=== PATIENT | female | born 1985 | race Caucasian/White ===

== ENCOUNTER 2016-09-26 01:28 | Inpatient (IN) | payer OTHER ==
[~2016-09-26] VITALS: Ht 154.9 cm; Wt 90.7 kg
[2016-09-26] MEDS ORDERED: Hemorrhage Kit, Post Partum XX ONE (23:25)
[2016-09-26] MEDS ORDERED: fentaNYL-PF 50 mCg/mL 2 mL Inj IVPUSH PRN (23:25)
[2016-09-26] MEDS ORDERED: Methylergonovine 0.2 mg/mL Inj IM PRN (23:25)
[2016-09-26] MEDS ORDERED: Sodium Chloride LOK Flush 10 mL Syringe IVFLUSH PRN (23:25)
[2016-09-26] MEDS ORDERED: Carboprost 250 mCg/mL Inj IM PRN (23:25)
[2016-09-26] MEDS ORDERED: Oxytocin 30 Units/500 mL LR 30 UNITS in IV Premix 1 EACH IV PRN (23:25)
[2016-09-26] MEDS ORDERED: Oxytocin 10 Unit/mL Inj IM PRN (23:25)
[2016-09-26 23:34] LABS: Mean Corpuscular Hemoglobin 30.3 pg (27.0-35.0); Mean Corpuscular Volume 89.8 fL (81-100)
[2016-09-26] MEDS: Lactated Ringer's 1,000 ML IV PRN (23:50)
[2016-09-27] MEDS ORDERED: Lactated Ringer's 1,000 ML IV SCH ×3 (02:58→18:21)
[2016-09-27] MEDS ORDERED: Lactated Ringer's 500 ML IV ONE ×2 (02:58→16:05)
[2016-09-27] MEDS ORDERED: fentaNYL 2 mCg/mL-Bupiv 0.125% 100 ML EPIDURAL SCH (03:00)
[2016-09-27] MEDS ORDERED: EPHEDrine Sulfate 50 mg/mL Inj IVPUSH PRN (03:00)
[2016-09-27] MEDS ORDERED: Atropine 1 mg/10 mL (Code) Syringe IVPUSH PRN (03:00)
--- NOTE | 2016-09-27 03:31 | PCM.HPANE ---
Patient Data Date of Service: Sep 27, 2016 (0300) Surgeon Admitting Provider:Smooth Bernal MD Attending Provider:Smooth Bernal MD Primary Care Physician:Smooth Bernal MD Other Provider:Eric Ryan Anesthesia Reason for Visit Induction INDUCTION Ht/WT & BMI Height (Feet): 5 Height (Inches): 1 Body Mass Index Allergies Coded Allergies: No Known Allergies (Unverified , 09/26/16) Past Anesthesia History Anesthesia History: Denies:: Anesthesia Reactions Diabetes History Hx Diabetes?: No MRSA MRSA: No History History of ENT Problems?: No HEENT History: Denies:: Abnormal Airway Denture Type: None Teeth Condition: Within Normal Limits Hx of Heart Problems?: No Cardiovascular History: Denies:: Cardiac Surgery Hx of Respiratory Problem?: No Respiratory History: Denies:: Pneumonia Hx Neurologic Problems?: No Neurological History: Denies:: Headaches Peripheral Neuropathy Hx of GI Problems?: No Hx of Problems?: No Female Hx: Positive for:: Currently Hx Musculoskeletal Problems?: No Hx Surgeries?: No Stop/Bang Risk Assessment Category Category 1A: Patient has history of documented sleep apnea, and HAS NOT received any narcotic, sedative or anesthesia administration during this stay. Category 1B: Patient has history of documented sleep apnea, and HAS received any narcotic , sedative or anesthesia administration during this stay Category 2: Patient has SUSPECTED Obstructive Sleep Apnea, and HAS received any narcotic , sedative or anesthesia administration during this stay. Category 3: Patient has SUSPECTED Obstructive Sleep Apnea and HAS NOT received narcotic, sedative or anesthesia administration during this stay. Category 4: Outpatient in Procedural Areas with known sleep apnea or who screen positive for High Risk via the STOP/BANG questionnaire. Exam Exam General Appearance: Alert, Oriented X3, Moderate Distress HEENT/AIRWAY: MP 2 Lungs: Clear to Auscultation Heart: Exam Unremarkable Meds/Labs/Diagnostics Labs Test 09/26/16 23:32 White Blood Count 13.1th/mm3 (3.8-10.1) Red Blood Count 3.63mil/mm3 (3.90-5.20) Hemoglobin 11.0g/dL (12.0-15.6) Hematocrit 32.6% (35.0-46.0) Mean Corpuscular Volume 89.8fL (81-100) Mean Corpuscular Hemoglobin 30.3pg (27.0-35.0) Mean Corpuscular Hemoglobin Concent 33.7% (32.0-37.0) Red Cell Distribution Width 13.5% (12.3-15.4) Platelet Count 203bil/L (150-400) Plan Impression Patient chart reviewed, patient interviewed and anesthestic plan with risks, benefits, and alternatives discussed, and informed consent obtained. NPO per Anesth. Guidelines: Yes ASA Physical Status: ASA2 Mod Systemic Disease Anesthetic Plan: Epidural Bene/Risks/Altern/Consents: Yes HP Complete Prior to Induction: Yes Leonides Escalante MD Sep 27, 2016 03:31
[2016-09-27] MEDS: Lactated Ringer's 1,000 ML IV PRN ×2 (05:34→05:54)
[2016-09-27 16:41] LABS: Mean Corpuscular Hemoglobin 30.5 pg (27.0-35.0); Mean Corpuscular Volume 90.5 fL (81-100)
[2016-09-27] MEDS ORDERED: Hemorrhage Kit, Post Partum XX ONE (18:25)
[2016-09-27] MEDS ORDERED: Measles-Mumps-Rubella Vaccine 0.5 mL Inj SUBQ ONE (18:25)
[2016-09-27] MEDS ORDERED: Benzocaine (Dermoplast) 20% 60 Gm Spray TOPICAL PRN (18:25)
[2016-09-27] MEDS ORDERED: Methylergonovine 0.2 mg/mL Inj IM PRN (18:25)
[2016-09-27] MEDS ORDERED: Oxytocin 10 Unit/mL Inj IM PRN (18:25)
[2016-09-27] MEDS ORDERED: LANOlin HPA 7 Gm Ointment TOPICAL PRN (18:25)
[2016-09-27] MEDS ORDERED: Carboprost 250 mCg/mL Inj IM PRN (18:25)
[2016-09-27] MEDS ORDERED: TdaP Vaccine 0.5 mL Inj IM ONE (18:25)
[2016-09-27] MEDS ORDERED: HYDROcodone-APAP 5-325 mg Tablet PO PRN (18:25)
[2016-09-27] MEDS ORDERED: Oxytocin 30 Units/500 mL LR 30 UNITS in IV Premix 1 EACH IV PRN (18:25)
[2016-09-27] MEDS ORDERED: Witch Hazel-Glycerin Pads TOPICAL PRN (18:25)
--- NOTE | 2016-09-28 00:05 | OP ---
[address] [address] OPERATIVE REPORT PATIENT: GABI MEYER : 1985 MR#: [id number] ADMIT: 09/26/2016 JOB ID: [id number] 09/27/2016 Smooht Bernal MD [facility] NOTE: Gabi Howard presented to [facility] last evening at 40-1/2 weeks of gestation with uterine contractions that were becoming more frequent and more intense. She was planned for admission last evening anyway in the setting of developing post-datism and macrosomia as estimated per ultrasonography and by exam. She initially was noted to be closed cervically initially, and Pitocin therapy was initiated to augment contractions that were coming relatively frequently. Pitocin therapy was carried on overnight and cervix did not change for some time, although contraction intensity did. Patient ultimately received intravenous fentanyl and then epidural as she was so uncomfortable, and she did receive relief. Note that some heart rate decelerations(variables/head compression type decelerations) occurred, sometimes improved with position changes and oxygen therapy and intravenous fluids, etc. There was typically good interval heart rate variability/reactivity. activity was audible and palpable throughout. At the time of my exam this morning, cervix was noted to be 7 to 8 cm in dilatation and head had dropped down to -1 station, very significant station change compared with floating. The patient was then observed with low-dose Pitocin and ultimately patient reached complete cervical dilation, and head continued to descend, and heart tracing continued to demonstrate reasonable variability/reactive characteristics. The patient then learned to push very well and steadily down the head to position, with significant caput formation and molding. Head then delivered, followed by delivery of the shoulders, body and extremities. Note that baby was active, crying and vigorous, and handed to mother for bonding and further nurse management. After a minute of delay, umbilical cord was clamped and cut and cord blood was obtained for routine studies. Placenta with membranes were then spontaneously expelled, intact. Note that there was approximately 300 cc of blood clots behind the placenta and membranes as noted on their delivery, ultimately estimating total blood loss at 400 cc. Uterus contracted well with massage plus intravenous Pitocin infusion, and bleeding was minimal at procedure's close. Betadine solution was used to cleanse the vulvovaginal region. There was second-degree midline laceration, bleeding, and closed with 2-0 chromic suture in deep running layer and then more superficial 3-0 chromic suture in a running and then subcuticular manner. Hemostasis was noted to be complete and there was no hematoma formation. The skin edges were well approximated and perineal support good. Rectal examination demonstrated no lacerations or stitches. Note also that one additional single interrupted stitch of 3-0 chromic suture was utilized to reapproximate the skin edges of very small right periurethral laceration. Procedures were thus complete. Mother and baby are doing well. Bleeding was minimal. Instrument, needle and sponge counts were all found to be correct. PERLITAD
--- NOTE | 2016-09-28 08:03 | PCM.DIOB ---
Obstetrical Disch Instruction Dates of Hospitalization Date of Hospital Admission Sep 26, 2016 at 22:48 Providers Admitting Physician: Smooth Bernal MD Primary Care Physician: Smooth Bernal MD Attending Physician: Smooth Bernal MD Discharge Diagnosis Problems: (1) Status: Acute ICD Code: Z33.1 Diet Discharge Diet: No restrictions Activity Discharge Activity-General: Pelvic Rest for 6 weeks Dressing and Incisional Care Hygiene: May shower, Perineal care, Sitz bath, Dermoplast spray, Witch Silva pads, Ice Follow Up Plan Follow-up appointment: Weeks (Followup in 6 weeks for checkup.) Call your provider for: Fever or Chills, Shortness of breath, Heavy vaginal bleeding, Red painful breasts Smooth Bernal MD Sep 28, 2016 08:03
[2016-09-28] MEDS ORDERED: FERR-83 PO (08:06)
[2016-09-28] MEDS ORDERED: DOCU-41 PO (08:06)
[2016-09-28] MEDS ORDERED: IBUP-1827 PO (08:06)
[2016-09-28 14:47] VITALS: BP 119/60; PULSE 96; RESP 20
--- NOTE | 2016-09-28 18:59 | DIS ---
[address] [address] DISCHARGE SUMMARY PATIENT: BLANCHE MEYER : 1985 MR#: [id number] ADMIT: 09/26/2016 JOB ID: [id number] DIS: DISCHARGE DIAGNOSIS: 1. A 40-5/7 weeks , delivered. 2. macrosomia. 3. Anemia. PROCEDURES PERFORMED DURING HOSPITALIZATION: 1. Labor augmentation. 2. Epidural anesthesia. 3. Vaginal delivery. 4. Perineal repair. HOSPITAL COURSE: The patient was admitted to [facility] the evening of September 26, 2016 with progressively increasing uterine contractions. This had been the evening slated for her admission anyway in the setting of developing postdatism and large for gestational age status. Pitocin augmentation was provided and ultimately true labor ensued, epidural was provided for pain management, and vaginal delivery occurred. See delivery note [facility]/delivery note. During the timeframe the patient did well in general. She did early on faint in the bathroom as accompanied by two nurses, without any trauma. She subsequently did well ambulating and voiding, with pain management, with reasonable bleeding, without leg pain or shortness of breath, and handling baby well. Note approximately 400 mL of blood loss estimated at delivery, much of this behind the placenta as it was gradually , and with hemoglobin drop from 11.0 to 9.0. Bleeding was not excessive at time of hospitalization. The patient requested discharge to home on the first day, i.e., on September 28, 2016, and her request was granted. DISCHARGE PROGRAM: The patient will call p.r.n., yet otherwise she will follow up at six weeks for a checkup with Dr. Bernal. She will observe pelvic rest for six weeks. DISCHARGE MEDICATIONS: Include ibuprofen 600 mg, ferrous sulfate 325 mg for twice daily use, and Colace 100 mg for twice daily use. Prescriptions written. The patient will also use vitamin daily while nursing.
--- NOTE | 2016-09-29 09:49 | HP ---
[address] [address] HISTORY AND PHYSICAL PATIENT: BLANCHE MEYER : 1985 MR#: [id number] ADMIT: 09/26/2016 JOB ID: [id number] DATE: 09/26/2016 TIME: 2330 hours. HISTORY OF PRESENT ILLNESS: The patient has been followed prenatally at [facility], see record for details. Due date is September 22, 2016, placing the patient at 40 and 4/7 weeks of gestation on admission. course has been relatively uncomplicated, although note 43 pound weight gain during the , also fundal height size greater than dates and with recent ultrasound suggesting estimated weight of 9 pounds. Note that patient is Rh positive, GBS negative, rubella immune, she is not diabetic, and where she declined a quad screen, level II sonogram failed to demonstrate any high risk of anomaly or genetic abnormality. She underwent Tdap vaccination in July 2016. The patient was scheduled for admission in the evening of September 26, 2016, due to developing postdatism and large for gestational age, note also unengaged head which has placed the patient at reduced chance of vaginal delivery. However, she developed uterine contractions in the evening of September 26, 2016, and came in for evaluation and found to have a closed cervix, went home for a time and then returned before midnight. Contractions were stronger, feeling moderately or more intense per nurse, although cervix was again reported to be closed. She was admitted, however, in light of the developing postdatism and large for gestational age and suspected true early labor. PHYSICAL EXAMINATION ON ADMISSION: Last height, weight and blood pressure in the office: 61 inches, 200 pounds and 122/70, respectively. No thyromegaly. Lungs clear to auscultation and percussion. Heart: Regular in rate and rhythm. Abdomen: Fundal height 42.5 cm. Positive heartbeat. Vertex presentation. Pelvic examination: On admission, cervix closed and thick. Head very high. DIAGNOSTIC DATA: Admission hemoglobin 11.0 with platelets 203. IMPRESSION: 1. A 40 and 4/7 weeks . 2. Early labor. 3. Large for gestational age per fundal height and sonographic assessment, with estimated weight of 9 pounds. 4. Unengaged head at term with suspected macrosomia, the combination of these factors reducing the likelihood of successful vaginal delivery, although patient has requested labor effort, and I have agreed. 5. Increased weight gain in . 6. Increased weight. 7. No known drug allergies. 8. Family history of diabetes (uncle, grandmother). PLAN: The patient has been admitted to [facility] in early labor in the evening, already designated for admission for cervical ripening/labor induction in light of developing postdatism, suspected macrosomia, and unengaged head. Pitocin therapy will be initiated for augmentation purposes, with close tracking of labor progress. We have discussed benefits and risks of if this becomes necessary.
== END 2016-09-28 16:00 | disposition home or self-care (01) | DRG 775 ==
LOC: FBC 22:48
PROVIDERS: ADMIT Obstetrics & Gynecology; ATTEND Obstetrics & Gynecology
PROC: 10E0XZZ Delivery of Products of Conception, External Approach (ICD-10-PCS; principal; 2016-09-27)
PROC: 0KQM0ZZ Repair Perineum Muscle, Open Approach (ICD-10-PCS; 2016-09-27)
PROC: 0UQMXZZ Repair Vulva, External Approach (ICD-10-PCS; 2016-09-27)
DX: O70.1 Second degree perineal laceration during delivery (principal); Z37.0 Single live birth; O36.63X0 Maternal care for excessive fetal growth, third trimester, not applicable or unspecified; O90.81 Anemia of the puerperium; D64.9 Anemia, unspecified; O76 Abnormality in fetal heart rate and rhythm complicating labor and delivery; O71.82 Other specified trauma to perineum and vulva; Z3A.40 40 weeks gestation of pregnancy